=== PATIENT | male | born 1970 | race Caucasian/White ===

== ENCOUNTER 2018-06-15 08:35 | Emergency (ER) | payer SELFPAY ==
[2018-06-15] MEDS: ONDANSETRON (ODT) 4 MG TAB ODT (09:32)
[2018-06-15] MEDS: NICARDipine HCL 30 MG CAPSULE PO (09:32)
[2018-06-15] MEDS: HYDROCODONE/APAP (5/325) TAB PO (09:32)
[2018-06-15] MEDS: KETOROLAC 30 MG INJ IV (11:46)
[2018-06-15] MEDS: SOD CHLORIDE 0.9% 1,000 ML IV (11:46)
== END 2018-06-15 13:06 | disposition home or self-care (01) ==
LOC: FTE 08:35
DX: R51 Headache (principal); I10 Essential (primary) hypertension
CPT/HCPCS: 70450; 96361; 96374; 99285-25